=== PATIENT | female | born 2000 | race Caucasian/White ===

== ENCOUNTER 2023-01-02 10:52 | Outpatient (CLI) | payer OTHER ==
[2023-01-02 18:11] LABS: ALBUMIN 4.2 g/dL (3.2-5.5); ALKALINE PHOSPHATASE 60 IU/L (42-121); ALT ALANINE AMINOTRANSFERASE 15 IU/L (10-60); AST ASPARTATE AMINOTRANSFERASE 19 IU/L (10-42); BILIRUBIN,TOTAL 0.5 mg/dL (0.2-1.0); CHOL/HDL RATIO 4.2 (<4.4); CHOLESTEROL 191 mg/dL; HDL CHOLESTEROL 45 mg/dL; LDL CHOLESTEROL,CALCULATED 124 mg/dL; LDL/HDL RATIO 2.8 (<4.4); TOTAL PROTEIN 7.7 g/dL (6.7-8.2); TRIGLYCERIDES 112 mg/dL; VLDL CHOLESTEROL 22 mg/dL
[2023-01-02 18:13] LABS: BILIRUBIN,DIRECT < 0.1 mg/dL (0.1-0.5)
== END 2023-01-02 10:53 | disposition home or self-care (01) ==
LOC: LAB.N 10:52
PROVIDERS: ATTEND Physician Assistant
DX: L70.0 Acne vulgaris (principal); Z79.899 Other long term (current) drug therapy; K13.0 Diseases of lips
CPT/HCPCS: 36415; 80061; 80076; 83721